=== PATIENT | female | born 1980 | race American Indian/Alaskan Native ===

== ENCOUNTER 2017-10-29 01:13 | Emergency (ER) | payer SELFPAY ==
[2017-10-29 03:36] LABS: Basophils % (Auto) 0.9 % (0.0-1.8); Eosinophils # (Auto) 0.2 K/mm3 (0.0-0.4); Hematocrit 30.2 % (30.3-42.9); Hemoglobin 10.2 gm/dl (10.1-14.3); Lymphocytes # (Auto) 1.7 K/mm3 (1.2-5.4); Lymphocytes % (Auto) 36.3 % (13.4-35.0); Mean Corpuscular HGB Conc 34 % (30-34); Mean Corpuscular Hemoglobin 34 pg (28-32); Mean Corpuscular Volume 99 fl (79-97); Monocytes # (Auto) 0.5 K/mm3 (0.0-0.8); Monocytes % (Auto) 10.5 % (0.0-7.3); Platelet Count 222 K/mm3 (140-440); Red Blood Count 3.04 M/mm3 (3.65-5.03); Red Cell Distribution Width 15.2 % (13.2-15.2)
[2017-10-29 03:54] LABS: BUN/Creatinine Ratio 14; Blood Urea Nitrogen 7 mg/dL (7-17); Calcium 8.6 mg/dL (8.4-10.2); Hemolysis Index 3
[2017-10-29] MEDS ORDERED: TORADOL IM ONE (03:57)
--- NOTE | 2017-10-29 04:04 | Emergency Department Report ---
HPI - General Chief Complaint: Headache Time Seen by Provider: 10/29/17 03:49 - HPI HPI: The patient is a 36-year-old female who presents for evaluation of headache. The patient reports headache for greater than the past one month, on and off, aching in quality, currently 7/10 in severity, worse with movement of the head. She states that her headache is consistent with previous headaches, that is not the worse headache of her life, that did not wake her out of sleep, and that it is not thunderclap in quality. She also reports associated mild achy neck pain of same duration. The patient denies fever, head injury/head trauma, trauma to the neck, neck stiffness, chest pain, dyspnea, cough, hemoptysis, dysphagia, abdominal pain, back pain, vision or hearing changes, smell or taste changes, paresthesias, facial drooping, slurred speech, seizure-like activity, urine or bowel incontinence or retention, or other focal neurological deficit. ED Past Medical Hx - Past Medical History Previous Medical History?: No Hx Hypertension: Yes (noncompliant meds) - Surgical History Past Surgical History?: No - Social History Smoking Status: Current Every Day Smoker Substance Use Type: None - Medications Home Medications: Home Medications Medication Instructions Recorded Confirmed Last Taken Type Hydrochlorothiazide [HCTZ] 25 mg PO QDAY #30 tablet 10/29/17 Unknown Rx amLODIPine [Norvasc] 5 mg PO DAILY #31 tab 10/29/17 Unknown Rx traMADol [Ultram 50 MG tab] 50 mg PO Q6HR PRN #15 tablet 10/29/17 Unknown Rx ED Review of Systems ROS: Stated complaint: HEAD ,NECK TIGHTNESSS Other details as noted in HPI Constitutional: denies: fever ENT: denies: throat or neck pain Respiratory: denies: cough, shortness of breath Cardiovascular: reports: chest pain Endocrine: denies unexplained weight loss or gain Gastrointestinal: denies: abdominal pain, nausea Genitourinary: denies: dysuria Musculoskeletal: denies: leg swelling Skin: denies: rash Neurological: denies: headache Hematological/Lymphatic: denies: easy bleeding or easy bruising Psych: denies sadness or hopelessness Physical Exam - Physical Exam Vital Signs: Vital Signs 10/29/17 10/29/17 10/29/17 02:00 02:04 02:35 Temperature 98.3 F 98.3 F 98 F Pulse Rate 96 H 100 H 92 H Respiratory 20 20 16 Rate Blood Pressure 156/107 156/107 Blood Pressure 152/95 [Left] O2 Sat by Pulse 98 98 100 Oximetry Physical Exam: General: well-nourished, well-developed, no acute distress Head: Normocephalic, atraumatic Eyes: normal sclera ENT: Mucous membranes are pink and moist Neck: trachea midline, neck supple, No neck stiffness, no cervical adenopathy Respiratory: Breath sounds equal bilaterally, no wheezing, rales, or rhonchi Cardio: S1 and S2 present, no murmurs, rubs, gallops, capillary refill is brisk Abdomen: Normoactive bowel sounds, soft abdomen, no rigidity, no guarding or rebound tenderness Musc: No pitting edema Skin: No rash Neuro: alert oriented x4, normal cognition, speech normal, PERRL, EOM intact, no facial drooping, no uvula or tongue deviation on protrusion, no deficit with rotation of neck or shoulder shrug, no obvious gross motor deficit in the upper or lower extremities with flexion or extension at the shoulder, elbow, wrist, hip, knee, or ankle bilaterally, no obvious gross sensation deficit to crude touch or 2 pt discrimination, 2+ symmetric reflexes on DTR testing, no coordination deficit with [id number] or [id number] testing, Babinski downgoing, romberg negative, patient able to to ambulate without abnormal gait Psych: Normal affect ED Course Vital Signs 10/29/17 10/29/17 10/29/17 02:00 02:04 02:35 Temperature 98.3 F 98.3 F 98 F Pulse Rate 96 H 100 H 92 H Respiratory 20 20 16 Rate Blood Pressure 156/107 156/107 Blood Pressure 152/95 [Left] O2 Sat by Pulse 98 98 100 Oximetry ED Medical Decision Making - Lab Data Result diagrams: 10/29/17 03:22 10/29/17 03:22 - Medical Decision Making The patient was seen and examined by myself. The patient is placed on a ekg monitor tech and continuous pulse ox. On initial evaluation, the patient was found to be in no distress. As there are no neuro deficits or other findings on examination concerning for acute intracranial disease process, and as the patient states that symptoms are consistent with previous headaches, a CAT scan of the head is not required at this time. Nonetheless the patient was offered a CT scan of her head as she has a space symptoms for over a month, and she declined, stating that she received a CAT scan the head in [place] one month ago during evaluation of the same symptoms. The patient is given an IM dose of Toradol for pain. The patient was reevaluated and reported that their symptoms were markedly improved. The patient is stable for discharge with outpatient follow-up. The patient is given follow-up and return instructions. The patient expressed understanding and agreed with the plan. The patient is discharged in stable condition. Critical care attestation.: If time is entered above; I have spent that time in minutes in the direct care of this critically ill patient, excluding procedure time. ED Disposition Clinical Impression: Dehydration, Acute non intractable tension-type headache, Neck pain, bilateral Disposition: DC-01 TO HOME OR SELFCARE Is pt being admited?: No Does the pt Need Aspirin: No Condition: Stable Instructions: Acute Headache (ED), Spasmodic Torticollis (ED) Referrals: RAFI DOSHI MD [Primary Care Provider] - 3-5 Days [facility] [Provider Group] - 3-5 Days JARAD FRAUSTO MD [Staff Physician] - 3-5 Days Time of Disposition: 04:05
[2017-10-29 04:25] VITALS: BP 135/78
== END 2017-10-29 04:39 | disposition home or self-care (01) ==
LOC: ED 01:13
DX: E86.0 Dehydration (principal); R51 Headache; M54.2 Cervicalgia
CPT/HCPCS: 36415; 80048; 84703; 85025; 96372; 99284; J1885

== ENCOUNTER 2017-12-23 05:04 | Emergency (ER) | payer SELFPAY ==
[2017-12-23] MEDS ORDERED: ASPIRIN PO ONE (05:32)
[2017-12-23] MEDS ORDERED: CORDARONE IV ONE (05:46)
[2017-12-23] MEDS ORDERED: NACL 0.9% 1000 ML 1,000 ML ONE ×2 (05:49→06:04)
[2017-12-23] MEDS ORDERED: CORDARONE 150 MG in D5W 100 ML IV ONE (05:57)
[2017-12-23] MEDS ORDERED: CARDIZEM ONE (05:58)
[2017-12-23] MEDS ORDERED: CORDARONE 900 MG in D5W 482 ML IV SCH (06:00)
[2017-12-23 06:02] LABS: Hematocrit 33.4 % (30.3-42.9); Hemoglobin 11.2 gm/dl (10.1-14.3); Mean Corpuscular HGB Conc 34 % (30-34); Mean Corpuscular Hemoglobin 34 pg (28-32); Mean Corpuscular Volume 100 fl (79-97); Platelet Count 454 K/mm3 (140-440); Red Blood Count 3.32 M/mm3 (3.65-5.03)
[2017-12-23] MEDS ORDERED: LOPRESSOR IV ONE ×2 (06:11→07:07)
[2017-12-23 06:15] LABS: BUN/Creatinine Ratio 19; Blood Urea Nitrogen 17 mg/dL (7-17); Calcium 8.9 mg/dL (8.4-10.2); Hemolysis Index 23
[2017-12-23] MEDS ORDERED: ADRENALIN ONE (06:16)
[2017-12-23] MEDS ORDERED: SODIUM BICARBONATE IV ONE (06:16)
[2017-12-23] MEDS ORDERED: ATIVAN ONE ×2 (06:18)
[2017-12-23] MEDS ORDERED: DIPRIVAN 10 MG/ML 1,000 MG/100 ML BOTTLE IV SCH (06:20)
[2017-12-23] MEDS ORDERED: DIPRIVAN 10 MG/ML 1,000 MG/100 ML BOTTLE IV ONE (06:41)
--- NOTE | 2017-12-23 06:43 | Emergency Department Report ---
ED Chest Pain HPI - General Chief Complaint: Chest Pain Stated Complaint: CHEST PAIN Time Seen by Provider: 12/23/17 05:30 Source: patient Mode of arrival: Ambulatory Limitations: No Limitations - History of Present Illness MD Complaint: chest pain -: Sudden Onset: during rest Pain Location: substernal, left chest Pain Radiation: back Severity: severe Severity scale (0 -10): 10 Quality: sharp Consistency: constant Improves With: nothing Worsens With: exertion re: nausea, dyspnea, sense of impending doom. denies: vomting, diaphoresis Other Symptoms: palpitations. denies: cough, fever, syncope, rash, acid taste in mouth, leg swelling, burping Treatments Prior to Arrival: none Aspirin use within the Past 7 Days: (0) No - Related Data On Oral Contraceptives: No Previous Rx's Medication Instructions Recorded Last Taken Type Hydrochlorothiazide [HCTZ] 25 mg PO QDAY #30 tablet 10/29/17 Unknown Rx amLODIPine [Norvasc] 5 mg PO DAILY #31 tab 10/29/17 Unknown Rx traMADol [Ultram 50 MG tab] 50 mg PO Q6HR PRN #15 tablet 10/29/17 Unknown Rx Allergies Allergy/AdvReac Type Severity Reaction Status Date / Time No Known Allergies Allergy Verified 12/23/17 06:01 Heart Score - HEART Score History: Slightly suspicious EKG: Normal Age: < 45 Risk factors: No known risk factors Troponin: 1-3x normal limit HEART Score: 1 ED Review of Systems ROS: Stated complaint: CHEST PAIN Other details as noted in HPI Constitutional: denies: chills, fever Eyes: denies: eye pain, eye discharge, vision change ENT: denies: ear pain, throat pain Respiratory: shortness of breath. denies: cough, wheezing Cardiovascular: chest pain, palpitations Endocrine: no symptoms reported Gastrointestinal: denies: abdominal pain, nausea, diarrhea Genitourinary: denies: urgency, dysuria, discharge Musculoskeletal: back pain. denies: joint swelling, arthralgia Skin: denies: rash, lesions Neurological: denies: headache, weakness, paresthesias Psychiatric: denies: anxiety, depression Hematological/Lymphatic: denies: easy bleeding, easy bruising ED Past Medical Hx - Past Medical History Previous Medical History?: Yes Hx Hypertension: Yes (noncompliant meds) - Surgical History Past Surgical History?: No - Family History Family history: no significant - Social History Smoking Status: Current Every Day Smoker Substance Use Type: None - Medications Home Medications: Home Medications Medication Instructions Recorded Confirmed Last Taken Type Hydrochlorothiazide [HCTZ] 25 mg PO QDAY #30 tablet 10/29/17 Unknown Rx amLODIPine [Norvasc] 5 mg PO DAILY #31 tab 10/29/17 Unknown Rx traMADol [Ultram 50 MG tab] 50 mg PO Q6HR PRN #15 tablet 10/29/17 Unknown Rx ED Physical Exam - General Limitations: No Limitations General appearance: alert, in no apparent distress - Head Head exam: Present: atraumatic, normocephalic - Eye Eye exam: Present: normal appearance - ENT ENT exam: Present: mucous membranes moist - Neck Neck exam: Present: normal inspection - Respiratory Respiratory exam: Present: normal lung sounds bilaterally. Absent: respiratory distress - Cardiovascular Cardiovascular Exam: Present: regular rate, tachycardia. Absent: systolic murmur, diastolic murmur, rubs, gallop - GI/Abdominal GI/Abdominal exam: Present: soft, normal bowel sounds - Extremities Exam Extremities exam: Present: normal inspection - Back Exam Back exam: Present: normal inspection - Neurological Exam Neurological exam: Present: alert, oriented X3 - Psychiatric Psychiatric exam: Present: normal affect, normal mood - Skin Skin exam: Present: warm, dry, intact, normal color. Absent: rash ED Course Vital Signs 12/23/17 12/23/17 12/23/17 05:20 05:30 05:34 Temperature 97.5 F L 97.5 F L Pulse Rate 70 146 H 109 H Respiratory 12 19 20 Rate Blood Pressure 99/67 99/67 O2 Sat by Pulse 98 100 Oximetry 12/23/17 12/23/17 12/23/17 05:45 06:01 06:15 Temperature Pulse Rate 150 H 131 H 82 Respiratory 39 H 43 H 17 Rate Blood Pressure 118/72 113/81 114/75 O2 Sat by Pulse 99 92 82 L Oximetry 12/23/17 12/23/17 12/23/17 06:31 06:45 07:01 Temperature Pulse Rate 113 H 68 29 L Respiratory 17 16 0 L Rate Blood Pressure 92/50 107/66 107/66 O2 Sat by Pulse Oximetry 12/23/17 07:15 Temperature Pulse Rate Respiratory 0 L Rate Blood Pressure 107/66 O2 Sat by Pulse Oximetry - Reevaluation(s) Reevaluation #1: at 0535, Initial EKG DONE and patient is in A. fib RVR. Patient placed in room and given 150mg of amiodarone bolus., With no response. Patient was then given 6, 12, 12 of adenosine with no sustainable response. Heart rate still between 130 and 170 on the monitor. Patient then given Cardizem 20 mg with no response. Patient's heart rate remained above 140. Blood pressure is now 128/ 80, patient is given Lopressor 5 mg and heart rate in the 90s. We'll continue to monitor patient's heart rate and signed patient out to the next Physician. 12/23/17 0545 Reevaluation #2: Patient became very agitated and Patient arrested, no pulse noted. See code note. Return of spontaneous circulation at 0627... During code patient was intubated. See procedure note 12/23/17 06:16 Reevaluation #3: Patient lost pulses again. See code note. Code ran in accordance with ACLS protocols. Unable to resuscitate patient time of 0657/... Propofol drip ordered however was not able to be given due to patient cardiac arrest again. 12/23/17 06:46 - Intubation Time Out Performed: Yes Sedative: none Laryngoscope: fiberoptic video scope Size: 4 ET Tube Size: 7.5 Tube Secured Depth (cm): 24 Tube Secured Location: teeth Tube Placement Confirmation: visualized tube passing t, equal breath sounds bilat, no breath sounds over epi, confirmation by capnometr Patient Tolerated Procedure: well Intubation Complications: none ALVAREZ score - Alvarez Score Age > 65: (0) No Aspirin use within the Past 7 Days: (0) No 3 or more CAD Risk Factors: (0) No 2 or more Angina events in past 24 hrs: (0) No Known CAD with more than 50% Stenosis: (0) No Elevated Cardiac Markers: (0) No ST Deviation Greater than 0.5mm: (0) No ALVAREZ Score: 0 ED Medical Decision Making - Lab Data Result diagrams: 12/23/17 05:50 12/23/17 05:50 - EKG Data Interpretation: other (0535 initial EKG reading A. fib with RVR.) - Medical Decision Making Is a 37-year-old female that presented symmetrical chest pain shortness of breath and found to have A. fib RVR. Patient later went into cardiac arrest and code ran in accordance with ACLS protocols. Time of 0 657. See code notes Critical Care Time: Yes Critical care attestation.: If time is entered above; I have spent that time in minutes in the direct care of this critically ill patient, excluding procedure time. Critical Care Time: 45 minutes for cc time ED Disposition Clinical Impression: Atrial fibrillation with RVR, Cardiac arrest, SOB (shortness of breath) Chest pain Qualifiers: Chest pain type: unspecified Qualified Code(s): R07.9 - Chest pain, unspecified Disposition: Z-41 HOSPICE- MED FAC Is pt being admited?: No Does the pt Need Aspirin: No Referrals: PRIMARY CARE, [Primary Care Provider] - 3-5 Days Time of Disposition: 06:57
[2017-12-23] MEDS ORDERED: CARDIZEM IV ONE (07:05)
[2017-12-23] MEDS ORDERED: NORMODYNE IV ONE (07:05)
[2017-12-23 07:26] VITALS: BP 107/66
[2017-12-23 08:08] LABS: Band Neutrophils # (Manual) 1.6 K/mm3; Basophils % (Manual) 0 % (0.0-1.8); Monocytes % (Manual) 6.2 % (0.0-7.3); Total Cells Counted 97
[2017-12-23 08:09] LABS: RBC Morphology Normal
== END 2017-12-23 08:38 ==
LOC: ED 05:04
DX: I46.9 Cardiac arrest, cause unspecified (principal); I48.91 Unspecified atrial fibrillation; I10 Essential (primary) hypertension; F17.200 Nicotine dependence, unspecified, uncomplicated
CPT/HCPCS: 31500; 36415; 80048; 84484; 84703; 85007; 85025; 92950; 93005; 93010; 96374; 96375; 99291; J0153; J0171; J0282; J2704; J7030; J7060; J2060